=== PATIENT | female | born 1950 | race Native Hawaiian/Other Pacific Islander ===

== ENCOUNTER 2022-07-06 15:23 | Outpatient (CLI) | payer OTHER | END 2022-07-06 18:53 | disposition home or self-care (01) | LOC: CT 15:23 | PROVIDERS: ATTEND Internal Medicine Gastroenterology | DX: R63.4 Abnormal weight loss (principal); R10.84 Generalized abdominal pain | CPT/HCPCS: 36415; 82565; 84520 ==